=== PATIENT | female | born 1985 | race American Indian/Alaskan Native ===

== ENCOUNTER 2017-01-31 21:23 | Emergency (ER) | payer MEDICAID ==
--- NOTE | 2017-02-01 00:46 | Emergency Department Report ---
HPI - General Chief Complaint: Neck Pain/Injury Time Seen by Provider: 02/01/17 00:32 - HPI HPI: Patient is a 31-year-old female presents to ED complaining of left-sided neck spasm since this morning. Patient states she went back down to pickle pumper a shirt off the floor and since attention and neck pain since then she has had spasms throughout the day. She described the pain as spasm aching 6 out of 10 intensity in nature. Patient states she is applied some heat with minor relief.Patient denies any fall trauma to the neck. She denies fevers/chills/nausea/vomiting/take any medications. ED Past Medical Hx - Past Medical History Previous Medical History?: No - Surgical History Past Surgical History?: Yes Additional Surgical History: abd hernia - Social History Smoking Status: Never Smoker Substance Use Type: None - Medications Home Medications: Home Medications Medication Instructions Recorded Confirmed Last Taken Type Cyclobenzaprine [Flexeril 10 MG 10 mg PO ONCE #20 tablet 02/01/17 Unknown Rx TAB] Ibuprofen [Motrin 800 MG tab] 800 mg PO ONCE #30 tablet 02/01/17 Unknown Rx ED Review of Systems ROS: Stated complaint: NECK SPASM Other details as noted in HPI Constitutional: denies: chills, fever Eyes: denies: eye pain, eye discharge, vision change ENT: denies: ear pain, throat pain Respiratory: denies: cough, shortness of breath, wheezing Cardiovascular: denies: chest pain, palpitations Endocrine: no symptoms reported Gastrointestinal: denies: abdominal pain, nausea, diarrhea Genitourinary: denies: urgency, dysuria, discharge Musculoskeletal: denies: back pain, joint swelling, arthralgia Skin: denies: rash, lesions Neurological: denies: headache, weakness, paresthesias Psychiatric: denies: anxiety, depression Hematological/Lymphatic: denies: easy bleeding, easy bruising Physical Exam - Physical Exam Vital Signs: Vital Signs 01/31/17 21:43 Temperature 98.3 F Pulse Rate 62 Respiratory 18 Rate Blood Pressure 120/77 O2 Sat by Pulse 100 Oximetry Physical Exam: GENERAL: Alert and oriented x3, no apparent distress, Normal Gait, atraumatic. HEAD: Head is normocephalic and a-traumatic. EYES: Extra ocular muscles are intact. Pupils are equal, round, and reactive to light and accommodation. NECK: Supple. Non edematous, No carotid bruits. No lymphadenopathy or thyromegaly. Pain with left range of movement. Up, down , and right full range of motion. No C-spine tenderness LUNGS: Symetrical with respiration, No wheezing, no rales or crackles, CTAB. HEART: S1, S2 present, regular rate and rhythm without murmur, no rubs, no gallops. ABDOMEN: No organomegaly was noted,Positive bowel sounds, soft, and non- distended. . Nontender to palpation on all Quadrants, NO CVA tenderness. EXTREMITIES/MUSCULOSKELETAL: No cyanosis, clubbing, rash, lesions or edema. Upper extremities Full ROM bilaterally. UE Pulses 2+ bilaterally. UE 5+ strength bilaterally NEUROLOGIC: No focal Deficit, Cranial nerves II through XII are grossly intact. No loss of sensation, PSYCHIATRIC: Mood is congruent with affect, denies suicidal or homicidal ideations. SKIN: Warm and dry, No lesions, No ulceration or induration present. ED Course Vital Signs 01/31/17 21:43 Temperature 98.3 F Pulse Rate 62 Respiratory 18 Rate Blood Pressure 120/77 O2 Sat by Pulse 100 Oximetry ED Medical Decision Making - Medical Decision Making 31-year-old female presents with muscle spasm of the neck ED course: Patient received Motrin and Flexeril and ED Discussed with patient proper rest of the neck. Discussed occasionally stretching the neck cannot keep any 60s. Discussed follow-up with primary care physician. Discussed the patient's medication as prescribed. Vital signs are normal patient is in no acute respiratory distress Critical care attestation.: If time is entered above; I have spent that time in minutes in the direct care of this critically ill patient, excluding procedure time. ED Disposition Clinical Impression: Myalgia Neck strain Qualifiers: Encounter type: initial encounter Qualified Code(s): S16.1XXA - Strain of muscle, fascia and tendon at neck level, initial encounter Disposition: DISCHARGED TO HOME OR SELFCARE Is pt being admited?: No Does the pt Need Aspirin: No Condition: Stable Instructions: Trigger Point Pain (ED), Musculoskeletal Pain (ED), Muscle Spasm (ED) Prescriptions: Cyclobenzaprine [Flexeril 10 MG TAB] 10 mg PO ONCE #20 tablet Ibuprofen [Motrin 800 MG tab] 800 mg PO ONCE #30 tablet Referrals: PRIMARY CARE, [Primary Care Provider] - 3-5 Days DULCE BOOTH MD [Referring] - 3-5 Days [facility] [Outside] - 3-5 Days [facility] - 3[facility]5 Days [facility] [Outside] - 3-5 Days Forms: Accompanied Note, Work/School Release Form(ED) Time of Disposition: 01:08
[2017-02-01] MEDS ORDERED: MOTRIN PO ONE (00:47)
[2017-02-01] MEDS ORDERED: FLEXERIL PO ONE (00:47)
[2017-02-01 01:26] VITALS: BP 117/77
== END 2017-02-01 01:29 | disposition home or self-care (01) ==
LOC: ED 21:23
DX: S16.1XXA Strain of muscle, fascia and tendon at neck level, initial encounter (principal); M79.1 Myalgia; X58.XXXA Exposure to other specified factors, initial encounter; Y93.89 Activity, other specified; Y99.9 Unspecified external cause status; Y92.89 Other specified places as the place of occurrence of the external cause
CPT/HCPCS: 99282